=== PATIENT | male | born 1995 | race Caucasian/White ===

== ENCOUNTER 2017-04-29 08:12 | Emergency (ER) | payer MEDICAID ==
[~2017-04-29] VITALS: Ht 157.5 cm; Wt 78.0 kg
[2017-04-29 08:15] VITALS: Ht 157.5 cm; Wt 78.0 kg
[2017-04-29] MEDS ORDERED: SOD CHLORIDE 0.9% 1,000 ML IV STA (08:25)
[2017-04-29] MEDS ORDERED: HYDROmorphONE 1 MG/ML SYG IV STA (08:25)
[2017-04-29] MEDS ORDERED: ONDANSETRON 4 MG INJ IV STA (08:25)
[2017-04-29] MEDS ORDERED: KETOROLAC 30 MG INJ IV STA (08:25)
[2017-04-29 08:43] LABS: ADD SCAN DIFF NO
[2017-04-29 08:47] LABS: BASOPHIL # 0.1 10^3/ul (0.0-0.1); BASOPHILS % 0.7 % (0.0-2.0); EOSINOPHILS # 0.2 10^3/ul (0.0-0.5); EOSINOPHILS % 1.7 % (0.0-7.0); HEMATOCRIT 47.3 % (42.0-52.0); HEMOGLOBIN 16.4 g/dl (14.0-18.0); LYMPHOCYTES # 4.9 10^3/ul (0.8-2.9); LYMPHOCYTES % 47.8 % (15.0-51.0); MEAN CORPUSCULAR HEMOGLOBIN 30.1 pg (29.0-33.0); MEAN CORPUSCULAR HGB CONC 34.7 g/dl (32.0-37.0); MEAN CORPUSCULAR VOLUME 86.8 fl (82.0-101.0); MEAN PLATELET VOLUME 10.5 fl (7.4-10.4); MONOCYTES % 9.4 % (0.0-11.0); NEUTROPHIL # 4.1 10^3/ul (1.6-7.5); NEUTROPHILS % 40.3 % (39.0-77.0); PLATELET COUNT 306 10^3/UL (140-415); RED BLOOD COUNT 5.45 10^6/ul (4.70-6.10); RED CELL DISTRIBUTION WIDTH 13.6 % (11.5-14.5); WHITE BLOOD COUNT 10.2 10^3/ul (4.8-10.8)
[2017-04-29 08:53] LABS: ADD UMIC YES; UR ASCORBIC ACID NEGATIVE (NEGATIVE); UR BILIRUBIN (Dip) NEGATIVE (NEGATIVE); UR BLOOD (Dip) 3+ mg/dL (NEGATIVE); UR CLARITY CLEAR (CLEAR); UR COLOR YELLOW (YELLOW); UR GLUCOSE (Dip) NEGATIVE (NEGATIVE); UR KETONES (Dip) NEGATIVE (NEGATIVE); UR LEUKOCYTE ESTERASE (Dip) NEGATIVE Leu/ul (NEGATIVE); UR MUCUS FEW /HPF (NONE SEEN); UR NITRITE (Dip) NEGATIVE (NEGATIVE); UR RBC 33 /HPF (0-5); UR SPECIFIC GRAVITY (Dip) 1.024 (1.003-1.030); UR TOTAL PROTEIN (Dip) 1+ mg/dl (NEGATIVE); UR UROBILINOGEN (Dip) NEGATIVE (NEGATIVE)
--- NOTE | 2017-04-29 09:00 | RADRPT ---
PROCEDURE: CT Abdomen and Pelvis without contrast. CLINICAL INDICATION: Right-sided abdominal pain TECHNIQUE: CT scan of the abdomen and pelvis without contrast was performed on a multidetector hig h-resolution CT scanner. The patient was scanned without intravenous contrast. Coronal and sagittal reformatted images were obtained from the axial source images. Images were reviewed on a high-resol [employer] PACS workstation. The total exam CTDI equals 8.46 mGy and the total exam DLP equals 488.77 mGy -cm. One or more of the following dose reduction techniques were used: Automated exposure control. Adjustment of the mA and/or kV according to patient size. Use of iterative reconstruction technique. COMPARISON: None FINDINGS: CT abdomen: The lung bases are clear. The heart size is normal, without pericardial thickening or effusion. Th ere is mild hepatomegaly with fatty infiltration. The spleen is normal in size and homogeneous in d ensity. The stomach is partially collapsed, but is grossly unremarkable. The pancreas as visualize d is normal. The gallbladder is unremarkable. There is no evidence for biliary dilatation. The adr enal glands are symmetric and normal. There is minimal right hydronephrosis with perinephric and periureteral stranding related to 4 mm ob structing stone in the proximal right ureter. There is no additional urolithiasis. The aorta is of normal caliber. There is no retroperitoneal lymphadenopathy. The isidro hepatis reg ion is clear. The bowel and mesentery, as visualized, are equally unremarkable. CT pelvis: The small bowel loops situated within the pelvis are unremarkable. The pelvic organs are normal. T he pelvic sidewalls and inguinal regions are clear. The sigmoid colon and rectum are unremarkable. No mass, lymphadenopathy, or free fluid is seen. No acute inflammation is seen. No osteolytic or osteoblastic lesion is detected. IMPRESSION: 1. Minimal right hydronephrosis with perinephric and periureteral stranding related to 4 mm obstruc ting stone in the proximal right ureter. No additional urolithiasis. 2. Mild hepatomegaly with fatty infiltration. RPTAT: BB .Lou Walton MD, MD Date Time Electronically viewed and signed by .Lou Walton MD, on 04/29/2017 08:59 .O/
[2017-04-29 09:09] LABS: ALBUMIN 4.9 g/dl (3.3-4.9); ALBUMIN/GLOBULIN RATIO 1.58; BILIRUBIN,INDIRECT 0.3 mg/dl (0-1.1); BILIRUBIN,TOTAL 0.3 mg/dl (0.2-1.3); CALCIUM 9.6 mg/dl (8.4-10.2); CREATININE 0.67 mg/dl (0.61-1.24); POTASSIUM 3.7 mmol/L (3.5-5.1)
[2017-04-29] MEDS ORDERED: IBUP-1542 PO (09:27)
[2017-04-29] MEDS ORDERED: HYDR-902 PO (09:27)
[2017-04-29] MEDS ORDERED: TAMS-14 PO (09:27)
[2017-04-29 09:46] VITALS: BP 128/81; PULSE 61; RESP 16
--- NOTE | 2017-04-29 11:21 | ERD ---
ER Documentation Chief Complaint Date/Time DATE: 04/29/17 TIME: 11:19 Chief Complaint right flank pain since this am HPI Patient is a 21-year-old female with no medical problems who presents with abdominal pain. The patient was brought in by ambulance. The patient has abdominal pain which he describes as strong. He woke up at 6 AM with the pain. Right lower quadrant. He denies radiation. He has had no fevers. He has had vomiting but no diarrhea. He has no treatment as of yet. Upon review of old medical records this is the patient's first visit to the emergency department. He does not currently have a primary doctor. ROS All systems reviewed and are negative except as per history of present illness. Medications Home Meds Active Scripts Tamsulosin Hcl* (Flomax*) 0.4 Mg Cap.er.24h, 0.4 MG PO QPM, #30 CAP Prov:RYAN GARCIA MD 04/29/17 Ibuprofen* (Motrin*) 600 Mg Tab, 600 MG PO Q8, #30 TAB Prov:RYAN GARCIA MD 04/29/17 Hydrocodone/Acetaminophen (Adel 10-325 Tablet) 1 Each Tablet, 1 TAB PO Q6H Y for PAIN, #12 TAB Prov:RYAN GARCIA MD 04/29/17 Allergies Allergies: Coded Allergies: No Known Allergy (Unverified , 04/29/17) PMhx/Soc Medical and Surgical Hx: pt denies Medical Hx, pt denies Surgical Hx Hx Alcohol Use: Yes (2-3/PERMONTH) Hx Substance Use: Yes (MARIJUANA) Hx Tobacco Use: Yes Smoking Status: Current every day smoker FmHx Family History: diabetes Physical Exam Vitals Vital Signs Date Time Temp Pulse Resp B/P Pulse Ox O2 Delivery O2 Flow Rate FiO2 04/29/17 09:46 61 16 128/81 100 Room Air 04/29/17 08:47 71 20 145/99 97 Room Air 04/29/17 08:15 98.1 68 20 129/78 99 Physical Exam Const: Moderate distress secondary to pain Head: Atraumatic Eyes: Normal Conjunctiva ENT: Normal External Ears, Nose and Mouth. Neck: Full range of motion..~ No meningismus. Resp: Clear to auscultation bilaterally Cardio: Regular rate and rhythm, no murmurs Abd: Right lower quadrant tenderness to palpation without rebound or guarding Skin: No petechiae or rashes Back: No midline or flank tenderness Ext: No cyanosis, or edema Neur: Awake and alert Psych: Normal Mood and Affect Result Diagram: 04/29/1783004/29/1731 Results 24 hrs Laboratory Tests Test 04/29/17 08:31 White Blood Count 10.210^3/ul Red Blood Count 5.4510^6/ul Hemoglobin 16.4g/dl Hematocrit 47.3% Mean Corpuscular Volume 86.8fl Mean Corpuscular Hemoglobin 30.1pg Mean Corpuscular Hemoglobin Concent 34.7g/dl Red Cell Distribution Width 13.6% Platelet Count 33397^3/UL Mean Platelet Volume 10.5fl Neutrophils % 40.3% Lymphocytes % 47.8% Monocytes % 9.4% Eosinophils % 1.7% Basophils % 0.7% Nucleated Red Blood Cells % 0.0/100WBC Neutrophils # 4.110^3/ul Lymphocytes # 4.910^3/ul Monocytes # 1.010^3/ul Eosinophils # 0.210^3/ul Basophils # 0.110^3/ul Nucleated Red Blood Cells # 0.010^3/ul Urine Color YELLOW Urine Clarity CLEAR Urine pH 5.0 Urine Specific [place] 1.024 Urine Ketones NEGATIVEmg/dL Urine Nitrite NEGATIVEmg/dL Urine Bilirubin NEGATIVEmg/dL Urine Urobilinogen NEGATIVEmg/dL Urine Leukocyte Esterase NEGATIVELeu/ul Urine Microscopic RBC 33/HPF Urine Microscopic WBC 4/HPF Urine Mucus FEW/HPF Urine Hemoglobin 3+mg/dL Urine Glucose NEGATIVEmg/dL Urine Total Protein 1+mg/dl Sodium Level 142mmol/L Potassium Level 3.7mmol/L Chloride Level 100mmol/L Carbon Dioxide Level 21mmol/L Anion Gap 25 Blood Urea Nitrogen 8mg/dl Creatinine 0.67mg/dl Glucose Level 136mg/dl Calcium Level 9.6mg/dl Total Bilirubin 0.3mg/dl Direct Bilirubin 0.00mg/dl Indirect Bilirubin 0.3mg/dl Aspartate Amino Transf (AST/SGOT) 38IU/L Alanine Aminotransferase (ALT/SGPT) 62IU/L Alkaline Phosphatase 109IU/L Total Protein 8.0g/dl Albumin 4.9g/dl Globulin 3.10g/dl Albumin/Globulin Ratio 1.58 Lipase 89U/L Current Medications Medications (Trade) Dose Ordered Sig/Vic Route PRN Reason Start Time Stop Time Status Last Admin Dose Admin Sodium Chloride (NS) 1,000 ml @ 1,000 mls/hr Q1H STAT IV 04/29/17 08:25 04/29/17 09:24 DC 04/29/17 08:37 Hydromorphone HCl (Dilaudid) 1 mg ONCE STAT IV 04/29/17 08:25 04/29/17 08:27 DC 04/29/17 08:40 Ondansetron HCl (Zofran Inj) 4 mg ONCE STAT IV 04/29/17 08:25 04/29/17 08:27 DC 04/29/17 08:37 Ketorolac Tromethamine (Toradol) 30 mg ONCE STAT IV 04/29/17 08:25 04/29/17 08:27 DC 04/29/17 08:38 Procedures/MDM CT scan shows a 4 mm kidney stone per radiology. Smoking Cessation Therapy: Pt. was lectured for greater than 3 minutes on the health risks of continued smoking and the benefits of cessation. Patient is a 21-year-old male with no medical problems who presents with abdominal pain. He was found to have an acute 4 mm kidney stone which is likely causing his pain. The symptoms were consistent with this. At this point I doubt appendicitis, cholecystitis, pancreatitis, or bowel obstruction. He has no sign of infected kidney stone and I believe outpatient management is appropriate. As the size of the kidney stone is 4 mm this may pass on its own but it may require lithotripsy. I will give him information for Dr. Edwards from urology. The patient will be given a prescription for ibuprofen, Adel, and Flomax. He can return for any worsening symptoms. Departure Diagnosis: Primary Impression: Kidney stone Additional Impression: Flank pain Condition: Stable Patient Instructions: Kidney Stone W/ Colic Referrals: CHRISTINA EDWARDS MD Additional Instructions: Specialist:Usted tiene rylee condicin mdica que requiere que lise a un especialista dentro de los prximos 1-2 vazquez.POR FAVOR,CON DEL RIO SEGUIMIENTO DE PRIMARIA PHSICIAN refferal. SI USTED NO TIENE UN MDICO GENERAL Y / O USTED NO PUEDE PAGAR shaun a un mdico,los siguientes adams RECURSOS sido suministrado a usted. ES DEL RIO RESPONSABILIDAD PARA SER VISTOS POR EL ESPECIALISTA: RYAN GARCIA MD Apr 29, 2017 11:21
== END 2017-04-29 09:50 | disposition home or self-care (01) ==
LOC: E/R 08:12 → EDSEX 08:12 → E/R 09:50
DX: N20.0 Calculus of kidney (principal); F17.210 Nicotine dependence, cigarettes, uncomplicated; R11.10 Vomiting, unspecified
CPT/HCPCS: 36415; 74176; 80053; 81001; 83690; 85025; 96361; 96374; 96375; J1170; J1885; J2405; J7030; Z7502; Z7610